=== PATIENT | male | born 1955 | race Caucasian/White ===

== ENCOUNTER 2021-10-25 10:48 | Emergency (ER) | payer MEDICARE, OTHER, SELFPAY ==
[2021-10-25 11:29] VITALS: BP 146/82; PULSE 65; RESP 18; TEMP 36.6; O2SAT 98; BMI 25.7
--- NOTE | 2021-10-25 11:39 | XRR_ITS ---
PROCEDURE INFORMATION: Exam: XR Left Finger(s) Exam date and time: 10/25/2021 12:05 PM Age: 66 years old Clinical indication: Injury or trauma; Other: PT cut 1st digit with kitchen knife; Laceration; Finger; Left; Thumb; Additional info: Trauma/laceration TECHNIQUE: Imaging protocol: XR Left fingers. Views: Minimum 2 views. COMPARISON: No relevant prior studies available. FINDINGS: Bones/joints: There is a comminuted interarticular hairline fracture involving the distal metaphysis of the proximal phalange of the thumb. The fracture shows transverse and longitudinal components. Soft tissues: Mild edema is seen in the periarticular soft tissues in the interphalangeal articulation. XR/XR finger LT min 2V [id number] IMPRESSION: 1. Comminuted interarticular hairline fracture proximal phalange of the thumb. 2. Periarticular soft tissue edema in the thumb. 3. Otherwise negative for acute bony abnormalities.
--- NOTE | 2021-10-25 11:40 | W.ED.WOUNDLC ---
Documented by User: [email or web address] Foss 10/25/21 14:31 HPI - Wound/Laceration General: Chief Complaint: Wound/Laceration Stated Complaint: left hand bleeding injury Time Seen by Provider: 10/25/21 11:35 Source: patient Mode of arrival: ambulatory Limitations: no limitations History of Present Illness: Patient is a nice 66-year-old male who presents to ED today for evaluation of a left thumb laceration that he sustained just prior to arrival after cutting it with a knife. Last tetanus is unknown. He does not complain of any numbness, tingling, loss of sensation to the digit. Patient reports he maintains full range of motion. Onset (ago): hour(s) Extremity Location: Left: hand (L thumb) Place: home Patient tetanus UTD: No (unknown) Context: accidental Associated symptoms: Reports no associated symptoms Treatments prior to arrival: bandage Review of Systems Musc: Reports: extremity pain (L thumb); Denies: extremity swelling Skin/Breast: Reports: other (laceration L thumb) Neuro: Denies: numbness in extremities or sensory changes Physical Exam Const: COMMON NORMALS: no acute distress, average body habitus, no limitations, healthy appearing, alert and well nourished Extremity: COMMON NORMALS: full ROM and capillary refill normal GENERAL: Yes normal exam except as noted LEFT UPPER EXTREMITY: Yes hand & digits (2cm laceration overlying dorsal proximal phalanx L thumb) Left hand and digits: Yes ROM (full ROM against resistance in all ordoñez) and Yes neurovascular exam (normal) Neuro: COMMON NORMALS: moves all extremities, no focal motor deficits and no sensory deficits noted SENSORIUM/ORIENTATION: Yes alert Skin: TRAUMA: laceration (L thumb) Procedures Laceration Laceration 1: Site: hand (L thumb) Side (If applicable): left Size (cm): 2.0 Description: linear Depth: simple, single layer Local Anesthetic: lidocaine 1% Amount of anesthesia used (mL): 1.0 Pre-repair: wound explored and irrigated extensively Skin layer closed with: nylon Size (cm): 4-0 Number of sutures: 6 Technique: simple, interrupted Course Vital Signs: Vital signs: Vital Signs Temperature 98 F 10/25/21 11:29 Pulse Rate 65 10/25/21 11:29 Respiratory Rate 18 10/25/21 11:29 Blood Pressure 146/82 10/25/21 11:29 Pulse Oximetry 98 10/25/21 11:29 MDM - Wound/Laceration Medical Decision Making Wound was repaired as documented. Patient maintains full range of motion of digit against resistance in all ordoñez. Wound care discussed at home as well as infection precautions. Sutures will need to be removed in 7 days. I had reviewed finger XR prior to his discharge and interpreted it as normal. Following his discharge the [facility] radiologist reported a comminuted intra-articular hairline fracture of the proximal phalange of the thumb. I again re-examined patient's XR films and do not agree with read. He has a fairly superficial laceration overlying the midshaft of his proximal phalanx that he cut with a knife. His mechanism of injury would not be consistent with this type of fracture anyway. I spoke to Dr. Amezcua who had our radiologist Dr. Monet look at the films and she to does not believe this represents an acute fracture especially given his mechanism of injury. No further evaluation needed on our end. Lab Data Radiology Impressions Finger X-Ray 10/25/21 11:39 IMPRESSION: 1. Comminuted interarticular hairline fracture proximal phalange of the thumb. 2. Periarticular soft tissue edema in the thumb. 3. Otherwise negative for acute bony abnormalities. Discharge Plan Discharge Patient Disposition: Home Clinical Impression: Laceration of left thumb Qualifiers: Encounter type: initial encounter Damage to nail status: without damage Foreign body presence: without foreign body Qualified Code(s): S61.012A - Laceration without foreign body of left thumb without damage to nail, initial encounter Condition: Stable Discharge Orders: Discharge ED (Routine); Ordered 10/25/21 Ordered By: Cahris Haider Patient Instructions: Laceration (ED), Finger Laceration (ED) Activity Restrictions/Additional Instructions: Keep wound/laceration clean with warm soap and water twice daily. Monitor for signs of infection such as redness, swelling, increased pain, or drainage. Please seek medical re-evaluation if these occur. If you received sutures today these will need to be removed (unless you were told by the provider that they are absorbable). The provider should have discussed with you the length of time until removal-7 DAYS. You may return to the emergency department for this service. If your wound was closed with Steri-Strips or glue/adhesive these will fall off within the next week or so. Coding Level of Care Code ED Plastic Die Maker Apprentice for Chg Fwd Exam Expanded Problem Focused Documented by User: Joseph Amezcua DO 10/25/21 15:19 HPI - Wound/Laceration General: Chief Complaint: Wound/Laceration Stated Complaint: left hand bleeding injury Time Seen by Provider: 10/25/21 11:35 Course Vital Signs: Vital signs: Vital Signs Temperature 98 F 10/25/21 11:29 Pulse Rate 65 10/25/21 11:29 Respiratory Rate 18 10/25/21 11:29 Blood Pressure 146/82 10/25/21 11:29 Pulse Oximetry 98 10/25/21 11:29 MDM - Wound/Laceration Medical Decision Making Wound was repaired as documented. Patient maintains full range of motion of digit against resistance in all ordoñez. Wound care discussed at home as well as infection precautions. Sutures will need to be removed in 7 days. I had reviewed finger XR prior to his discharge and interpreted it as normal. Following his discharge the [facility] radiologist reported a comminuted intra-articular hairline fracture of the proximal phalange of the thumb. I again re-examined patient's XR films and do not agree with read. He has a fairly superficial laceration overlying the midshaft of his proximal phalanx that he cut with a knife. His mechanism of injury would not be consistent with this type of fracture anyway. I spoke to Dr. Amezcua who had our radiologist Dr. Monet look at the films and she to does not believe this represents an acute fracture especially given his mechanism of injury. No further evaluation needed on our end. Chart reviewed and patient discussed with midlevel. Agree with assessment and plan. Lab Data Radiology Impressions Finger X-Ray 10/25/21 11:39 IMPRESSION: 1. Comminuted interarticular hairline fracture proximal phalange of the thumb. 2. Periarticular soft tissue edema in the thumb. 3. Otherwise negative for acute bony abnormalities. Discharge Plan Discharge Patient Disposition: Home Clinical Impression: Laceration of left thumb Qualifiers: Encounter type: initial encounter Damage to nail status: without damage Foreign body presence: without foreign body Qualified Code(s): S61.012A - Laceration without foreign body of left thumb without damage to nail, initial encounter Condition: Stable Discharge Orders: Discharge ED (Routine); Ordered 10/25/21 Ordered By: Charis Haider Patient Instructions: Laceration (ED), Finger Laceration (ED) Activity Restrictions/Additional Instructions: Keep wound/laceration clean with warm soap and water twice daily. Monitor for signs of infection such as redness, swelling, increased pain, or drainage. Please seek medical re-evaluation if these occur. If you received sutures today these will need to be removed (unless you were told by the provider that they are absorbable). The provider should have discussed with you the length of time until removal-7 DAYS. You may return to the emergency department for this service. If your wound was closed with Steri-Strips or glue/adhesive these will fall off within the next week or so. Coding Level of Care Code ED Plastic Die Maker Apprentice for Brandin Rodríguez Exam Expanded Problem Focused
[2021-10-25] MEDS: tetanus-diphtheria tox (adult) 0.5 mL SDV IM (11:58)
== END 2021-10-25 12:56 | disposition home or self-care (01) ==
PROVIDERS: Emergency Provider Physician Assistant
DX: S61.012A Laceration without foreign body of left thumb without damage to nail, initial encounter (principal); W26.0XXA Contact with knife, initial encounter; Z23 Encounter for immunization
CPT/HCPCS: 12001; 73140; 90471; 90714; 99283

== ENCOUNTER → 2023-11-28 15:00 | Outpatient (BNVA) | payer MEDICARE, OTHER, SELFPAY | PROVIDERS: PCP Family Medicine; Visit Provider Nurse Practitioner Family | DX: L82.0 Inflamed seborrheic keratosis (principal); D22.5 Melanocytic nevi of trunk; L81.4 Other melanin hyperpigmentation; L57.8 Other skin changes due to chronic exposure to nonionizing radiation; L82.1 Other seborrheic keratosis | CPT/HCPCS: 17110; 99203 ==

== ENCOUNTER → 2024-08-01 08:00 | Outpatient (BNVA) | payer MEDICARE, OTHER, SELFPAY | PROVIDERS: PCP Family Medicine; Visit Provider Nurse Practitioner Family | DX: L82.1 Other seborrheic keratosis (principal); L81.4 Other melanin hyperpigmentation; L57.8 Other skin changes due to chronic exposure to nonionizing radiation | CPT/HCPCS: 99213 ==